=== PATIENT | male | born 1965 | race Two or more races ===

== ENCOUNTER 2017-12-20 20:42 | Inpatient (IN) | payer MEDICARE, OTHER ==
[~2017-12-20] VITALS: Ht 175.3 cm; Wt 108.9 kg
[2017-12-21 00:30] VITALS: BP 102/71
[2017-12-21] MEDS ORDERED: Docusate 100mg cap ORAL PRN (03:15)
[2017-12-21] MEDS ORDERED: Norco 5mg/325mg tab ORAL PRN (03:15)
[2017-12-21 04:00] VITALS: BP 104/52
[2017-12-21] MEDS ORDERED: D5 1/2NS 1,000 ML IV ONE (04:00)
[2017-12-21] MEDS ORDERED: Heparin 5000 units/ml inj SUBQ SCH (06:00)
[2017-12-21 07:42] LABS: BASOPHILS % (AUTO) 1.3 % (0.0-2.0); EOSINOPHILS % (AUTO) 3.1 % (0.0-3.0); HEMATOCRIT 36.6 % (42.0-52.0); HEMOGLOBIN 12.8 G/DL (14.2-18.0); LYMPHOCYTES % (AUTO) 27.6 % (20.0-45.0); MEAN CORPUSCULAR VOLUME 89 FL (80-99); MONOCYTES % (AUTO) 7.5 % (1.0-10.0); NEUTROPHILS % (AUTO) 60.6 % (45.0-75.0); PLATELET COUNT 299 K/UL (150-450); RED BLOOD COUNT 4.11 M/UL (4.70-6.10); RED CELL DISTRIBUTION WIDTH 11.5 % (11.6-14.8)
[2017-12-21 08:00] VITALS: BP 147/85
[2017-12-21 08:07] LABS: ANION GAP 6 mmol/L (5-15); BLOOD UREA NITROGEN 27 mg/dL (7-18); CALCIUM 9.7 MG/DL (8.5-10.1); CARBON DIOXIDE 25 MMOL/L (21-32); CHLORIDE 108 MMOL/L (98-107); CREATININE 1.5 MG/DL (0.55-1.30); PHOSPHORUS 3.3 MG/DL (2.5-4.9); POTASSIUM 4.2 MMOL/L (3.5-5.1); SODIUM 139 MMOL/L (136-145)
[2017-12-21] MEDS ORDERED: Ciprofloxacin 500mg tab ORAL SCH (09:00)
[2017-12-21] MEDS ORDERED: Sennosides 8.6mg ORAL SCH (09:00)
[2017-12-21] MEDS ORDERED: Benztropine 1mg tab ORAL SCH (09:00)
--- NOTE | 2017-12-22 16:37 | History & Physical ---
History and Physical History & Physicial patient signed AMA prior my visit Pablo Sheridan MD Dec 22, 2017 16:37
--- NOTE | 2017-12-23 11:55 | Discharge Summary ---
Discharge Summary Discharge Summary _ DATE OF ADMISSION: 12/21/2017 DATE OF DISCHARGE: 12/21/2017. patient signed AGAINST MEDICAL ADVISE> REASON FOR ADMISSION: 52 years old male with history of spinal cord injury resulting in paraplegia, chronic indwelling Adame catheter, recurrent UTI, right hip pressure ulcer, major depressive disorder , initially presented to [facility]. Patient was seen at the ED at [facility] 2 days ago and at that time was diagnosed with urinary tract infection . He was sent home on ciprofloxacin. Patient received call back to come for [id number]. Patient was complaining of dizziness for 1 day . Blood culture were negative up to date. Urine culture grew Pseudomonas and enterococci. Pseudomonas was susceptible to Cipro and enterococci was intermediate susceptible. Patient reported that he was feeling better with antibiotic and not having any further fever or chills. Patient reported that urine was leaking around his catheter and asked to exchange the catheter. Patient denied fevers, chills, nausea ,vomiting ,diarrhea. Vital signs revealed low blood pressure 73/42. Pulse oximetry was stable on room air, heart rate was stable. Patient reported that it had occurred to him at every visit. Patient stated that he had been worked up in the past and was supposed to take a medication to increase his blood pressure . Upon evaluation WBC 9.8 with neutrophils 68. Hemoglobin 12.5 ,hematocrit 35.9. Lactic acid 2.2 Patient started on aggressive fluid resuscitation . Patient was given antibiotic/Cipro. Blood pressure improved with intravenous fluids . Prior to transfer blood pressure 99/53. Adame catheter was exchanged uneventfully. Patient was stable for transfer to [facility] for insurance purposes with diagnosis of sepsis due to UTI, hypotension. HOSPITAL COURSE: Patient came as direct admission from [facility]. Patient admitted to medical surgical floor. Patient started on IV fluids and antibiotics. Pain management was addressed. DVT prophylaxis provided. Bowel regimen instituted. Home medications resumed. Surgery consult was requested for right hip wound evaluation and recommendation regarding further management and wound care. Blood pressure stabilized. Prior to signing AMA blood pressure 147/85. Vital signs stable. Patient decided to leave AGAINST MEDICAL ADVICE. The risks and consequences of signing AGAINST MEDICAL ADVICE were discussed with patient in detail. Patient verbalized understanding, nevertheless signed AMA form and left. Patient left before being seen by attending physician. FINAL DIAGNOSES: Sepsis secondary to UTI UTI with Pseudomonas and enterococcus Hypotension History of spinal cord injury with resulting paraplegia Right hip pressure ulcer, present on admission I have been assigned to dictate discharge summary for this account. I was not involved in the patient's management. Sary Shea NP Dec 23, 2017 11:55
== END 2017-12-21 10:50 | disposition left against medical advice (07) | DRG 872 ==
LOC: 4E 12-21 00:06
DX: A41.9 Sepsis, unspecified organism (principal); N39.0 Urinary tract infection, site not specified; G82.20 Paraplegia, unspecified; Z53.21 Procedure and treatment not carried out due to patient leaving prior to being seen by health care provider; I95.9 Hypotension, unspecified; L89.219 Pressure ulcer of right hip, unspecified stage; B95.2 Enterococcus as the cause of diseases classified elsewhere; B96.5 Pseudomonas (aeruginosa) (mallei) (pseudomallei) as the cause of diseases classified elsewhere
CPT/HCPCS: 36415; 80048; 83735; 84100; 85025; 87081; 87086; 87181